=== PATIENT | female | born 1990 | race Caucasian/White ===

== ENCOUNTER 2016-06-28 17:03 | Emergency (ER) | payer BC, OTHER ==
[~2016-06-28 17:03] MED LIST: MOTR200T44 PO; TYLE167L PO
[2016-06-28 18:45] LABS: MEAN CORPUSCULAR HEMOGLOBIN 29.1 pg (27.0-33.0); MEAN CORPUSCULAR HGB CONC 33.8 g/dl (32.0-36.5); MEAN CORPUSCULAR VOLUME 86.1 fl (80.0-96.0); RED CELL DISTRIBUTION WIDTH 12.6 % (11.5-14.5); WHITE BLOOD COUNT 5.5 K/mm3 (4.0-10.0)
--- NOTE | 2016-06-28 19:10 | REPUSA ---
CLINICAL HISTORY: , bleeding TECHNIQUE: Pelvic ultrasound COMPARISON: No study for comparison is available at the time of interpretation. Uterus: Normal without masses. Intrauterine gestation sac: Intrauterine gestation with crown rump length measuring 3.3 mm correlatin g to 6 weeks 0 days gestation. However, no heart activity is seen at this time. Ovaries: There is a 1.6 cm left ovarian corpus luteal cyst. Pelvic fluid: None. IMPRESSION: Intrauterine gestation at 6 weeks 0 days, without discernible heart activity. Follo w-up ultrasound in 3-5 days is recommended to differentiate early live IUP from missed AB.
[2016-06-28 19:21] LABS: ANION GAP 7 MEQ/L (8-16); BLOOD UREA NITROGEN 16 MG/DL (7-18); CALCIUM LEVEL 9.1 MG/DL (8.5-10.1); CARBON DIOXIDE LEVEL 29 MEQ/L (21-32); CHLORIDE LEVEL 104 MEQ/L (98-107); CREATININE FOR GFR 0.65 MG/DL (0.55-1.02); GLOMERULAR FILTRATION RATE > 60.0 (>60); GLUCOSE, FASTING 64 MG/DL (70-105); HCG, SERUM QUANTITATIVE 6028 MIU/ML; POTASSIUM SERUM 3.3 MEQ/L (3.5-5.1); SODIUM LEVEL 140 MEQ/L (136-145)
--- NOTE | 2016-06-28 20:31 | EDDOCDS ---
Physician Documentation [facility] Name: Teresa Hawkins Age: 25 yrs Sex: Female : 1990 Arrival Date: 06/28/2016 Time: 17:03 Bed I1 / M1 Private MD: Tala [facility] [place] Disposition: 06/28/16 20:20 Discharged to Home/Self Care. Impression: Threatened . - Condition is Stable. - Discharge Instructions: Threatened Miscarriage, Pelvic Rest. - Medication Reconciliation, Local Pharmacy Hours form. - Follow up: Krishna Wilkins OB; When: 2 - 3 days; Reason: Recheck today's complaints, Continuance of care. - Problem is new. - Symptoms have improved. - Notes: KRISHNA WILKINS OB WILL CONTACT YOU TOMORROW TO ARRANGE REPEAT BLOOD WORK AND TO SET FOLLOW UP APPOINTMENT. RETURN TO THE ER IF THE SYMPTOMS WORSEN OR BECOME CONCERNING Historical: - Allergies: No known drug Allergies; - Home Meds: 1. Vitamin 27-0.8 mg Oral tab 1 tab once daily - PMHx: none; - PSHx: none; - Social history: Smoking status: Patient states was never smoker of tobacco. No barriers to communication noted, The patient speaks fluent Ethiopian, Speaks appropriately for age. - Family history: No immediate family members are acutely ill. - : The pt / caregiver states he / she is not on anticoagulants. Home medication list is obtained from the patient. - Exposure Risk Screening:: None identified. 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 9 in. (175.26 cm) (R); Pain 0/10; 20:26 BP 109 / 67; Pulse 72; Resp 18; Temp 98.2; Pulse Ox 98% ; ajs 17:05 Body Mass Index 20.67 (63.50 kg, 175.26 cm) gr2 MDM: 17:14 Type & Screen Ordered. EDMS 17:15 CBC Ordered. EDMS 17:48 IV Saline Lock ordered. ck7 17:48 NS 0.9% 1000 ml IV at bolus once ordered. ck7 17:48 Set up pelvic ordered. ck7 17:48 Financial registration complete. gb 17:49 MED Profile Ordered. EDMS 17:49 UA Ordered. EDMS 17:49 GC & Chlamydia Amplification Ordered. EDMS 17:49 Urine Culture Ordered. EDMS 17:49 Wet Prep Ordered. EDMS 17:49 US 1st trimester Ordered. EDMS 17:55 [facility] Payment Agreement was scanned into [email or web address] and attached to record. gb 18:32 TRANSVAGINAL US Ordered. EDMS 18:33 DUPLEX SCAN LIMITED (DOPPLER) Ordered. EDMS 18:36 HCG, SERUM QUANTITATIVE Ordered. EDMS 19:27 MED Profile Reviewed. ck7 19:27 UA Reviewed. ck7 19:27 Type & Screen Reviewed. ck7 19:27 CBC Reviewed. ck7 19:27 HCG, SERUM QUANTITATIVE Reviewed. ck7 19:27 US 1st trimester Reviewed. ck7 20:00 Wet Prep Reviewed. ck7 Administered Medications: 18:07 Drug: NS 0.9% 1000 ml Route: IV; Rate: bolus; Site: right antecubital; jmk 20:30 Follow up: IV Status: Infusion discontinued; IV Intake: 800ml nn1 Signatures: Dispatcher [employer] EDDE Ronda Rebolledo, Reg Reg gb Neha Urban,RN RN ck1 Thad Bustillos RPA-C RPA-Benny7 Ana Paula Camacho,RN RN nn1 Renaldo Fairchild RN The chart was reviewed and I authenticate all verbal orders and agree with the evaluation and treatment provided.Corrections: (The following items were deleted from the chart) 18:36 17:15 HCG, SERUM QUANTITATIVE+LAB ordered. EDMS EDMS Attachments: 17:55 [facility] Payment Agreement gb MTDD
--- NOTE | 2016-06-28 20:31 | EDDOCDS ---
Nurse's Notes [facility] Name: Teresa aHwkins Age: 25 yrs Sex: Female : 1990 Arrival Date: 06/28/2016 Time: 17:03 Bed I1 / M1 Private MD: VIV Edgar Diagnosis: Threatened Presentation: 06/28 17:07 Presenting complaint: Patient states: Moderate bright red bleeding since this morning. ck1 Reports lower abdominal cramping. Patient is 7 weeks . Risk factors: The patient reports no loss of conciousness prior to arrival. This patient has not had a hysterectomy. This patient has not begun menopause. Adult Sepsis Screening: The patient does not have new or worsening altered mentation. Patient's respiratory rate is less than 22. Systolic blood pressure is greater than 100. Patient has a qSOFA score of 0- Negative Sepsis Screen. Suicide/Homicide risk assessment- the patient denies having any suicidal and/or homicidal ideations and does not present with any other emotional, behavioral or mental health complaints. Status: The patient is a dependent. Transition of care: patient was not received from another setting of care. 17:07 Acuity: KIRILL Level 3 ck1 17:07 Method Of Arrival: Walkin/Carried/Asstd ck1 Triage Assessment: 17:09 General: Appears in no apparent distress, comfortable, Behavior is appropriate for age, ck1 cooperative. Pain: Location: pelvis Pain currently is 1 out of 10 on a pain scale. HIV screening NA for this visit Offered previously. Respiratory: Respiratory effort is unlabored, Respiratory pattern is regular, symmetrical. : Reports vaginal bleeding that is bright red with clots moderate flow. Derm: Skin is pink, warm & dry. 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 Vitamin 27-0.8 mg Oral tab 1 tab once daily - PMHx: none; - PSHx: none; - Social history: Smoking status: Patient states was never smoker of tobacco. No barriers to communication noted, The patient speaks fluent Syriac, Speaks appropriately for age. - Family history: No immediate family members are acutely ill. - : The pt / caregiver states he / she is not on anticoagulants. Home medication list is obtained from the patient. - Exposure Risk Screening:: None identified. Screenin:39 Screening information is obtained from the patient. Fall risk: No risks identified. lf1 Assistance ADL's: requires no assistance with activities of daily living. Abuse/DV Screen: The patient / caregiver reports he/she is: not in a situation that causes fear, pain or injury. Nutritional screening: No deficits noted. Advance Directives: Currently, there is no health care proxy. There is no active DNR order. home support is adequate. Assessment: 17:39 Adult Sepsis Screening: The patient does not have new or worsening altered mentation. lf1 Patient's respiratory rate is less than 22. Systolic blood pressure is greater than 100. Patient has a qSOFA score of 0- Negative Sepsis Screen. General: Appears in no apparent distress, comfortable, Behavior is cooperative. Pain: Location: suprapubic area Pain currently is 1 out of 10 on a pain scale. Quality of pain is described as crampy. Neurological: Level of Consciousness is awake, alert. EENT: No deficits noted. Cardiovascular: Chest pain is denied. Respiratory: Respiratory effort is even, unlabored. GI: Denies nausea, vomiting. : Reports vaginal bleeding that is bright red with clots moderate flow. Derm: Skin is normal. 20:29 Adult Sepsis Screening: The patient does not have new or worsening altered mentation. nn1 Patient's respiratory rate is less than 22. Systolic blood pressure is greater than 100. Patient has a qSOFA score of 0- Negative Sepsis Screen. General: Appears in no apparent distress, comfortable, Behavior is appropriate for age, cooperative. Neurological: Level of Consciousness is awake, alert, obeys commands. Respiratory: Airway is patent Respiratory effort is even, unlabored, Respiratory pattern is regular, symmetrical. Derm: Skin is pink, warm & dry. normal. Vital Signs: 17:05 BP 110 / 70; Pulse 68; Resp 18 S; Temp 97.1(O); Pulse Ox 100% on R/A; Weight 63.5 kg gr2 (R); Height 5 ft. 9 in. (175.26 cm) (R); Pain 0/10; 20:26 BP 109 / 67; Pulse 72; Resp 18; Temp 98.2; Pulse Ox 98% ; ajs 17:05 Body Mass Index 20.67 (63.50 kg, 175.26 cm) gr2 Vitals: 17:05 Log In Time: June 28, 2016 at 17:05. gr2 ED Course: 17:04 Patient visited by Tana Palacios. gr2 17:04 Tala [facility] [place] is Private Physician. gr2 17:04 Patient moved to Waiting gr2 17:05 Patient visited by Tana Palacios. gr2 17:05 Patient moved to Pre RCE gr2 17:08 Triage Initiated ck1 17:24 Patient moved to Triage 1 lf1 17:32 Thad Bustillos RPA-C is PHCP. ck7 17:32 Radha Pepper MD is Attending Physician. ck7 17:32 Patient visited by Thad Bustillos RPA-C. ck7 17:51 Patient moved to I1 / M1 lf1 17:54 Patient name changed from Teresa\S\\S\Ross\S\ to Teresa\S\Vandana\S\[place]. EDMS 17:55 [facility] Payment Agreement was scanned into [employer] and attached to record. gb 18:05 Patient visited by Thad Bustillos RPA-C. ck7 18:07 MED Profile Sent. jmk 18:07 CBC Sent. jmk 18:07 Type & Screen Sent. jmk 18:09 Patient visited by Renaldo Fairchild,KSENIA. jmk 18:09 Inserted saline lock: 20 gauge in right antecubital area. jmk 18:11 Patient moved to Ultrasound am17 18:11 Urine Culture Sent. nb2 18:11 UA Sent. nb2 18:23 Patient moved to I1 / M1 am17 18:56 Patient visited by Thad Bustillos RPA-C. ck7 19:21 US 1st trimester Returned. EDMS 19:27 Patient visited by Thad Bustillos RPA-C. ck7 19:58 Patient visited by Thad Bustillos RPA-C. ck7 20:20 JOSE Fuentes is Referral Physician. ck7 20:26 Patient visited by Radha Varner. ajs 20:30 The patient / caregiver is instructed regarding the plan of care and ED course. nn1 20:30 No procedures done that require assistance. nn1 Administered Medications: 18:07 Drug: NS 0.9% 1000 ml Route: IV; Rate: bolus; Site: right antecubital; k 20:30 Follow up: IV Status: Infusion discontinued; IV Intake: 800ml nn1 Intake: 20:29 IV: 800.00ml (NS); Total: 800.00ml. nn1 20:30 IV: 800.00ml; Total: 1600.00ml. nn1 Order Results: Lab Order: Type & Screen; [facility] 06/28/16 18:10 Test: BLOOD TYPE; Value: A POS; Status: F Test: AB SCREEN (INDIRECT RAJANI)VIS; Value: NEGATIVE; Status: F Lab Order: CBC; [facility] 06/28/16 18:10 Test: WHITE BLOOD COUNT; Value: 5.5; Range: 4.0-10.0; Units: K/mm3; Status: F Test: RED BLOOD COUNT; Value: 4.52; Range: 4.00-5.40; Units: M/mm3; Status: F Test: HEMOGLOBIN; Value: 13.2; Range: 12.0-16.0; Units: g/dl; Status: F Test: HEMATOCRIT; Value: 39.0; Range: 36.0-47.0; Units: %; Status: F Test: MEAN CORPUSCULAR VOLUME; Value: 86.1; Range: 80.0-96.0; Units: fl; Status: F Test: MEAN CORPUSCULAR HEMOGLOBIN; Value: 29.1; Range: 27.0-33.0; Units: pg; Status: F Test: MEAN CORPUSCULAR HGB CONC; Value: 33.8; Range: 32.0-36.5; Units: g/dl; Status: F Test: RED CELL DISTRIBUTION WIDTH; Value: 12.6; Range: 11.5-14.5; Units: %; Status: F Test: PLATELET COUNT, AUTOMATED; Value: 168; Range: 150-450; Units: k/mm3; Status: F Lab Order: MED Profile; [facility] 06/28/16 18:10 Test: GLUCOSE, FASTING; Value: 64; Range: 70-105; Abnormal: Below low normal; Units: MG/DL; Status: F Test: BLOOD UREA NITROGEN; Value: 16; Range: 7-18; Units: MG/DL; Status: F Test: CREATININE FOR GFR; Value: 0.65; Range: 0.55-1.02; Units: MG/DL; Status: F Test: GLOMERULAR FILTRATION RATE; Value: > 60.0; Range: >60; Status: F Test: SODIUM LEVEL; Value: 140; Range: 136-145; Units: MEQ/L; Status: F Test: POTASSIUM SERUM; Value: 3.3; Range: 3.5-5.1; Abnormal: Below low normal; Units: MEQ/L; Status: F Test: CHLORIDE LEVEL; Value: 104; Range: 98-107; Units: MEQ/L; Status: F Test: CARBON DIOXIDE LEVEL; Value: 29; Range: 21-32; Units: MEQ/L; Status: F Test: ANION GAP; Value: 7; Range: 8-16; Abnormal: Below low normal; Units: MEQ/L; Status: F Test: CALCIUM LEVEL; Value: 9.1; Range: 8.5-10.1; Units: MG/DL; Status: F Test Note: ; Units are mL/min/1.73 m2 Chronic Kidney Disease Staging per NKF: Stage I & II GFR >=60 Normal to Mildly Decreased Stage III GFR 30-59 Moderately Decreased Stage IV GFR 15-29 Severely Decreased Stage V GFR <15 Very Little GFR Left ESRD GFR <15 on PUNCH PRESS SETTER Lab Order: UA; SPEC'M 06/28/16 18:10 Test: APPEARANCE, URINE; Value: CLEAR; Range: CLEAR; Status: F Test: COLOR, URINE; Value: YELLOW; Range: YELLOW; Status: F Test: PH,URINE; Value: 6.0; Range: 5.0-9.0; Units: UNITS; Status: F Test: SPECIFIC GRAVITY URINE AUTO; Value: 1.021; Range: 1.002-1.035; Status: F Test: PROTEIN, URINE AUTO; Value: NEGATIVE; Range: NEGATIVE; Units: mg/dL; Status: F Test: GLUCOSE, URINE (UA) AUTO; Value: NEGATIVE; Range: NEGATIVE; Units: mg/dL; Status: F Test: KETONE, URINE AUTO; Value: NEGATIVE; Range: NEGATIVE; Units: mg/dL; Status: F Test: UROBILINOGEN, URINE AUTO; Value: 0.2; Range: 0.0-2.0; Units: mg/dL; Status: F Test: BILIRUBIN, URINE AUTO; Value: NEGATIVE; Range: NEGATIVE; Status: F Test: NITRITE, URINE AUTO; Value: NEGATIVE; Range: NEGATIVE; Status: F Test: LEUKOCYTE ESTERASE, URINE AUTO; Value: NEGATIVE; Range: NEGATIVE; Status: F Test: BLOOD, URINE BLOOD; Value: 3+; Range: NEGATIVE; Abnormal: Above high normal; Status: F Test: WBC, URINE AUTO; Value: 2; Range: 0-3; Units: /HPF; Status: F Test: RBC, URINE AUTO; Value: 19; Range: 0-3; Abnormal: Above high normal; Units: /HPF; Status: F Test: BACTERIA, URINE AUTO; Value: NEGATIVE; Range: NEGATIVE; Status: F Test: SQUAMOUS EPITHELIAL CELL UR AU; Value: 1; Range: 0-6; Units: /HPF; Status: F Test: HYALINE CAST, URINE AUTO; Value: 0; Range: 0-1; Units: /LPF; Status: F Lab Order: Wet Prep; SPEC'M 06/28/16 17:57 Test: WET PREP; Value: WET PREP RESULT; Status: F Test: WET PREP; Value: MODERATE EPITHELIAL CELLS PRESENT; Status: F Test: WET PREP; Value: FEW WBC; Status: F Test: WET PREP; Value: MANY RBC; Status: F Test: WET PREP; Value: FEW LONG RODS PRESENT; Status: F Test: WET PREP; Value: FEW SHORT RODS PRESENT; Status: F Test: WET PREP; Value: Comments:; Status: F Test Note: ; Specimen did not meet the 1 hour time limit from collection to examination. Trichomonas vaginalis loses motility quickly therefore, samples need to be examined within 1 hour of collection to optimally identify this organism. Lab Order: HCG, SERUM QUANTITATIVE; SPEC'M 06/28/16 18:10 Test: HCG, SERUM QUANTITATIVE; Value: 6028; Units: MIU/ML; Status: F Test Note: ; GESTATIONAL AGE APPROXIMATE HCG RANGE (MIU/ML) 0.2-1 WEEK 5-50 1-2 WEEKS 50-500 2-3 WEEKS 100-5,000 3-4 WEEKS 500-10,000 4-5 WEEKS 1,000-50,000 5-6 WEEKS 10,000-100,000 6-8 WEEKS 15,000-200,000 2-3 MONTHS 10,000-100,000 NON FEMALES LESS THAN 3.0 Patient samples may contain human heterophilic antibodies that could react with immunoassays to give falsely elevated or depressed results. This assay has been designed to minimize interference from heterophilic antibodies. Elevated hCG levels have also been associated with trophoblastic disease and nontrophoblastic neoplasms. The possibility of having these diseases should be considered before a diagnosis of is made. This test is not intended for use as a surrogate marker for aiding in the diagnosis or monitoring the treatment of cancer patients. [employer] methodology. Radiology Order: US 1st trimester Test: US 1st trimester REASON FOR EXAMINATION: Bleeding; ; CLINICAL HISTORY: , bleeding; ; TECHNIQUE: Pelvic ultrasound; ; COMPARISON: No study for comparison is available at the time of interpretation.; ; Uterus: Normal without masses.; Intrauterine gestation sac: Intrauterine gestation with crown rump length measuring 3.3 mm correlatin; g to 6 weeks 0 days gestation. However, no heart activity is seen at this time.; Ovaries: There is a 1.6 cm left ovarian corpus luteal cyst.; Pelvic fluid: None.; ; IMPRESSION: Intrauterine gestation at 6 weeks 0 days, without discernible heart activity. Follo; w-up ultrasound in 3-5 days is recommended to differentiate early live IUP from missed AB.; ; Outcome: 20:20 Discharge ordered by Provider. ck7 20:29 Discharge Assessment: Patient awake, alert and oriented x 3. No cognitive and/or nn1 functional deficits noted. Patient verbalized understanding of disposition instructions. patient administered narcotics - no. 20:30 The following High Risk Discharge criteria are identified: None. Discharged to home nn1 ambulatory, with family, with significant other. Condition: stable. Discharge instructions given to patient, Instructed on discharge instructions, follow up and referral plans. Demonstrated understanding of instructions, Pt was receptive of discharge instructions/ teaching. Ultrasound Study completed. Property :Personal belongings accompany Pt. 20:31 Patient left the ED. nn1 Signatures: Dispatcher [facility] EDMS Renaldo Fairchild,RN RN Ronda Slaughter, Neha AlexandraRN RN ck1 Anca Zazueta,RN RN lf1 Radha Varner Christopher, RPA-C RPA-Cck7 Tana Palacios gr2 Ella Barcenas am17 Ana Paula Camacho,RN RN nn1 Lori Coronado nb2 Corrections: (The following items were deleted from the chart) 18:36 18:07 HCG, SERUM QUANTITATIVE+LAB sent. dorita EDMS MTDD
--- NOTE | 2016-06-30 21:31 | EDDOCDS ---
Physician Documentation Name: Teresa Hawkins Age: 25 yrs Sex: Female : 1990 Arrival Date: 06/28/2016 Time: 17:03 Bed I1 / M1 Private MD: Tala [facility] [place] Disposition: 06/28/16 20:20 Discharged to Home/Self Care. Impression: Threatened . - Condition is Stable. - Discharge Instructions: Threatened Miscarriage, Pelvic Rest. - Medication Reconciliation, Local Pharmacy Hours form. - Follow up: Krishna Wilkins OB; When: 2 - 3 days; Reason: Recheck today's complaints, Continuance of care. - Problem is new. - Symptoms have improved. - Notes: KRISHNA WILKINS OB WILL CONTACT YOU TOMORROW TO ARRANGE REPEAT BLOOD WORK AND TO SET FOLLOW UP APPOINTMENT. RETURN TO THE ER IF THE SYMPTOMS WORSEN OR BECOME CONCERNING Historical: - Allergies: No known drug Allergies; - Home Meds: 1. Vitamin 27-0.8 mg Oral tab 1 tab once daily - PMHx: none; - PSHx: none; - Social history: Smoking status: Patient states was never smoker of tobacco. No barriers to communication noted, The patient speaks fluent [place], Speaks appropriately for age. - Family history: No immediate family members are acutely ill. - : The pt / caregiver states he / she is not on anticoagulants. Home medication list is obtained from the patient. - Exposure Risk Screening:: None identified. 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 9 in. (175.26 cm) (R); Pain 0/10; 20:26 BP 109 / 67; Pulse 72; Resp 18; Temp 98.2; Pulse Ox 98% ; ajs 17:05 Body Mass Index 20.67 (63.50 kg, 175.26 cm) gr2 MDM: 17:14 Type & Screen Ordered. EDMS 17:15 CBC Ordered. EDMS 17:48 IV Saline Lock ordered. ck7 17:48 NS 0.9% 1000 ml IV at bolus once ordered. ck7 17:48 Set up pelvic ordered. ck7 17:48 Financial registration complete. gb 17:49 MED Profile Ordered. EDMS 17:49 UA Ordered. EDMS 17:49 GC & Chlamydia Amplification Ordered. EDMS 17:49 Urine Culture Ordered. EDMS 17:49 Wet Prep Ordered. EDMS 17:49 US 1st trimester Ordered. EDMS 17:55 [facility] [place] Agreement was scanned into [employer] and attached to record. gb 18:32 TRANSVAGINAL US Ordered. EDMS 18:33 DUPLEX SCAN LIMITED (DOPPLER) Ordered. EDMS 18:36 HCG, SERUM QUANTITATIVE Ordered. EDMS 19:27 MED Profile Reviewed. ck7 19:27 UA Reviewed. ck7 19:27 Type & Screen Reviewed. ck7 19:27 CBC Reviewed. ck7 19:27 HCG, SERUM QUANTITATIVE Reviewed. ck7 19:27 US 1st trimester Reviewed. ck7 20:00 Wet Prep Reviewed. ck7 06/29 18:16 T-Sheet-- Draft Copy was scanned into [employer] and attached to record. klr Administered Medications: 06/28 18:07 Drug: NS 0.9% 1000 ml Route: IV; Rate: bolus; Site: right antecubital; jmk 20:30 Follow up: IV Status: Infusion discontinued; IV Intake: 800ml nn1 Signatures: Dispatcher [employer] EDNY Ronda Rebolledo, Reg Reg gb Neha Urban,RN RN ck1 Thad Bustillos, RPA-C RPA-Cck7 Ana Paula CamachoRN RN nn1 Tricia Castelan Jean RN jmk The chart was reviewed and I authenticate all verbal orders and agree with the evaluation and treatment provided.Corrections: (The following items were deleted from the chart) 18:36 17:15 HCG, SERUM QUANTITATIVE+LAB ordered. EDMS EDMS Attachments: 17:55 [facility] Payment Agreement 06/29 18:16 T-Sheet-- Draft Copy klr Chart Complete MTDD
--- NOTE | 2016-06-30 21:31 | EDDOCDS ---
Physician Documentation [facility] Name: Teresa Hawkins Age: 25 yrs Sex: Female : 1990 Arrival Date: 06/28/2016 Time: 17:03 Bed I1 / M1 Private MD: Tala [facility] Disposition: 06/28/16 20:20 Discharged to Home/Self Care. Impression: Threatened . - Condition is Stable. - Discharge Instructions: Threatened Miscarriage, Pelvic Rest. - Medication Reconciliation, Local Pharmacy Hours form. - Follow up: Krishna Wilkins OB; When: 2 - 3 days; Reason: Recheck today's complaints, Continuance of care. - Problem is new. - Symptoms have improved. - Notes: KRISHNA WILKINS OB WILL CONTACT YOU TOMORROW TO ARRANGE REPEAT BLOOD WORK AND TO SET FOLLOW UP APPOINTMENT. RETURN TO THE ER IF THE SYMPTOMS WORSEN OR BECOME CONCERNING Historical: - Allergies: No known drug Allergies; - Home Meds: 1. Vitamin 27-0.8 mg Oral tab 1 tab once daily - PMHx: none; - PSHx: none; - Social history: Smoking status: Patient states was never smoker of tobacco. No barriers to communication noted, The patient speaks fluent Uzbek, Speaks appropriately for age. - Family history: No immediate family members are acutely ill. - : The pt / caregiver states he / she is not on anticoagulants. Home medication list is obtained from the patient. - Exposure Risk Screening:: None identified. 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 9 in. (175.26 cm) (R); Pain 0/10; 20:26 BP 109 / 67; Pulse 72; Resp 18; Temp 98.2; Pulse Ox 98% ; ajs 17:05 Body Mass Index 20.67 (63.50 kg, 175.26 cm) gr2 MDM: 17:14 Type & Screen Ordered. EDMS 17:15 CBC Ordered. EDMS 17:48 IV Saline Lock ordered. ck7 17:48 NS 0.9% 1000 ml IV at bolus once ordered. ck7 17:48 Set up pelvic ordered. ck7 17:48 Financial registration complete. gb 17:49 MED Profile Ordered. EDMS 17:49 UA Ordered. EDMS 17:49 GC & Chlamydia Amplification Ordered. EDMS 17:49 Urine Culture Ordered. EDMS 17:49 Wet Prep Ordered. EDMS 17:49 US 1st trimester Ordered. EDMS 17:55 [facility] Payment Agreement was scanned into [employer] and attached to record. gb 18:32 TRANSVAGINAL US Ordered. EDMS 18:33 DUPLEX SCAN LIMITED (DOPPLER) Ordered. EDMS 18:36 HCG, SERUM QUANTITATIVE Ordered. EDMS 19:27 MED Profile Reviewed. ck7 19:27 UA Reviewed. ck7 19:27 Type & Screen Reviewed. ck7 19:27 CBC Reviewed. ck7 19:27 HCG, SERUM QUANTITATIVE Reviewed. ck7 19:27 US 1st trimester Reviewed. ck7 20:00 Wet Prep Reviewed. ck7 06/29 18:16 T-Sheet-- Draft Copy was scanned into [employer] and attached to record. klr Administered Medications: 06/28 18:07 Drug: NS 0.9% 1000 ml Route: IV; Rate: bolus; Site: right antecubital; jmk 20:30 Follow up: IV Status: Infusion discontinued; IV Intake: 800ml nn1 Signatures: Dispatcher [employer] EDCT Ronda Rebolledo, Reg Reg gb Neha Urban,RN RN ck1 Thad Bustillos, RPA-C RPA-Cck7 Ana Paula CamachoRN RN nn1 Tricia Castelan Jean RN jmk The chart was reviewed and I authenticate all verbal orders and agree with the evaluation and treatment provided.Corrections: (The following items were deleted from the chart) 18:36 17:15 HCG, SERUM QUANTITATIVE+LAB ordered. EDMS EDMS Attachments: 17:55 [facility] Payment Agreement 06/29 18:16 T-Sheet-- Draft Copy klr Chart Complete MTDD
--- NOTE | 2016-06-30 21:31 | EDDOCDS ---
Nurse's Notes [facility] Name: Teresa Hawkins Age: 25 yrs Sex: Female : 1990 Arrival Date: 06/28/2016 Time: 17:03 Bed I1 / M1 Private MD: VIV Edgar Diagnosis: Threatened Presentation: 06/28 17:07 Presenting complaint: Patient states: Moderate bright red bleeding since this morning. ck1 Reports lower abdominal cramping. Patient is 7 weeks . Risk factors: The patient reports no loss of conciousness prior to arrival. This patient has not had a hysterectomy. This patient has not begun menopause. Adult Sepsis Screening: The patient does not have new or worsening altered mentation. Patient's respiratory rate is less than 22. Systolic blood pressure is greater than 100. Patient has a qSOFA score of 0- Negative Sepsis Screen. Suicide/Homicide risk assessment- the patient denies having any suicidal and/or homicidal ideations and does not present with any other emotional, behavioral or mental health complaints. Status: The patient is a dependent. Transition of care: patient was not received from another setting of care. 17:07 Acuity: KIRILL Level 3 ck1 17:07 Method Of Arrival: Walkin/Carried/Asstd ck1 Triage Assessment: 17:09 General: Appears in no apparent distress, comfortable, Behavior is appropriate for age, ck1 cooperative. Pain: Location: pelvis Pain currently is 1 out of 10 on a pain scale. HIV screening NA for this visit Offered previously. Respiratory: Respiratory effort is unlabored, Respiratory pattern is regular, symmetrical. : Reports vaginal bleeding that is bright red with clots moderate flow. Derm: Skin is pink, warm & dry. 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 Vitamin 27-0.8 mg Oral tab 1 tab once daily - PMHx: none; - PSHx: none; - Social history: Smoking status: Patient states was never smoker of tobacco. No barriers to communication noted, The patient speaks fluent [place], Speaks appropriately for age. - Family history: No immediate family members are acutely ill. - : The pt / caregiver states he / she is not on anticoagulants. Home medication list is obtained from the patient. - Exposure Risk Screening:: None identified. Screenin:39 Screening information is obtained from the patient. Fall risk: No risks identified. lf1 Assistance ADL's: requires no assistance with activities of daily living. Abuse/DV Screen: The patient / caregiver reports he/she is: not in a situation that causes fear, pain or injury. Nutritional screening: No deficits noted. Advance Directives: Currently, there is no health care proxy. There is no active DNR order. home support is adequate. Assessment: 17:39 Adult Sepsis Screening: The patient does not have new or worsening altered mentation. lf1 Patient's respiratory rate is less than 22. Systolic blood pressure is greater than 100. Patient has a qSOFA score of 0- Negative Sepsis Screen. General: Appears in no apparent distress, comfortable, Behavior is cooperative. Pain: Location: suprapubic area Pain currently is 1 out of 10 on a pain scale. Quality of pain is described as crampy. Neurological: Level of Consciousness is awake, alert. EENT: No deficits noted. Cardiovascular: Chest pain is denied. Respiratory: Respiratory effort is even, unlabored. GI: Denies nausea, vomiting. : Reports vaginal bleeding that is bright red with clots moderate flow. Derm: Skin is normal. 20:29 Adult Sepsis Screening: The patient does not have new or worsening altered mentation. nn1 Patient's respiratory rate is less than 22. Systolic blood pressure is greater than 100. Patient has a qSOFA score of 0- Negative Sepsis Screen. General: Appears in no apparent distress, comfortable, Behavior is appropriate for age, cooperative. Neurological: Level of Consciousness is awake, alert, obeys commands. Respiratory: Airway is patent Respiratory effort is even, unlabored, Respiratory pattern is regular, symmetrical. Derm: Skin is pink, warm & dry. normal. Vital Signs: 17:05 BP 110 / 70; Pulse 68; Resp 18 S; Temp 97.1(O); Pulse Ox 100% on R/A; Weight 63.5 kg gr2 (R); Height 5 ft. 9 in. (175.26 cm) (R); Pain 0/10; 20:26 BP 109 / 67; Pulse 72; Resp 18; Temp 98.2; Pulse Ox 98% ; ajs 17:05 Body Mass Index 20.67 (63.50 kg, 175.26 cm) gr2 Vitals: 17:05 Log In Time: June 28, 2016 at 17:05. gr2 ED Course: 17:04 Patient visited by Tana Palacios. gr2 17:04 Tala [facility] is Private Physician. gr2 17:04 Patient moved to Waiting gr2 17:05 Patient visited by Tana Palacios. gr2 17:05 Patient moved to Pre RCE gr2 17:08 Triage Initiated ck1 17:24 Patient moved to Triage 1 lf1 17:32 Thad Bustillos RPA-C is PHCP. ck7 17:32 Radha Pepper MD is Attending Physician. ck7 17:32 Patient visited by Thad Bustillos RPA-C. ck7 17:51 Patient moved to I1 / M1 lf1 17:54 Patient name changed from Teresa\S\\S\Ross\S\ to Teresa\S\Vandana\S\[place]. EDMS 17:55 [facility] Payment Agreement was scanned into [employer] and attached to record. gb 18:05 Patient visited by Thad Bustillos RPA-C. ck7 18:07 MED Profile Sent. jmk 18:07 CBC Sent. jmk 18:07 Type & Screen Sent. jmk 18:09 Patient visited by Renaldo Fairchild,KSENIA. jmk 18:09 Inserted saline lock: 20 gauge in right antecubital area. jmk 18:11 Patient moved to Ultrasound am17 18:11 Urine Culture Sent. nb2 18:11 UA Sent. nb2 18:23 Patient moved to I1 / M1 am17 18:56 Patient visited by Thad Bustillos RPA-C. ck7 19:21 US 1st trimester Returned. EDMS 19:27 Patient visited by Thad Bustillos RPA-C. ck7 19:58 Patient visited by Thad Bustillos RPA-C. ck7 20:20 JOSE Fuentes is Referral Physician. ck7 20:26 Patient visited by Radha Varner. ajs 20:30 The patient / caregiver is instructed regarding the plan of care and ED course. nn1 20:30 No procedures done that require assistance. nn1 06/29 18:16 T-Sheet-- Draft Copy was scanned into [employer] and attached to record. klr Administered Medications: 06/28 18:07 Drug: NS 0.9% 1000 ml Route: IV; Rate: bolus; Site: right antecubital; [facility] 20:30 Follow up: IV Status: Infusion discontinued; IV Intake: 800ml nn1 Intake: 20:29 IV: 800.00ml (NS); Total: 800.00ml. nn1 20:30 IV: 800.00ml; Total: 1600.00ml. nn1 Order Results: Lab Order: Type & Screen; [facility] 06/28/16 18:10 Test: BLOOD TYPE; Value: A POS; Status: F Test: AB SCREEN (INDIRECT RAJANI)VIS; Value: NEGATIVE; Status: F Lab Order: CBC; [facility] 06/28/16 18:10 Test: WHITE BLOOD COUNT; Value: 5.5; Range: 4.0-10.0; Units: K/mm3; Status: F Test: RED BLOOD COUNT; Value: 4.52; Range: 4.00-5.40; Units: M/mm3; Status: F Test: HEMOGLOBIN; Value: 13.2; Range: 12.0-16.0; Units: g/dl; Status: F Test: HEMATOCRIT; Value: 39.0; Range: 36.0-47.0; Units: %; Status: F Test: MEAN CORPUSCULAR VOLUME; Value: 86.1; Range: 80.0-96.0; Units: fl; Status: F Test: MEAN CORPUSCULAR HEMOGLOBIN; Value: 29.1; Range: 27.0-33.0; Units: pg; Status: F Test: MEAN CORPUSCULAR HGB CONC; Value: 33.8; Range: 32.0-36.5; Units: g/dl; Status: F Test: RED CELL DISTRIBUTION WIDTH; Value: 12.6; Range: 11.5-14.5; Units: %; Status: F Test: PLATELET COUNT, AUTOMATED; Value: 168; Range: 150-450; Units: k/mm3; Status: F Lab Order: MED Profile; [facility] 06/28/16 18:10 Test: GLUCOSE, FASTING; Value: 64; Range: 70-105; Abnormal: Below low normal; Units: MG/DL; Status: F Test: BLOOD UREA NITROGEN; Value: 16; Range: 7-18; Units: MG/DL; Status: F Test: CREATININE FOR GFR; Value: 0.65; Range: 0.55-1.02; Units: MG/DL; Status: F Test: GLOMERULAR FILTRATION RATE; Value: > 60.0; Range: >60; Status: F Test: SODIUM LEVEL; Value: 140; Range: 136-145; Units: MEQ/L; Status: F Test: POTASSIUM SERUM; Value: 3.3; Range: 3.5-5.1; Abnormal: Below low normal; Units: MEQ/L; Status: F Test: CHLORIDE LEVEL; Value: 104; Range: 98-107; Units: MEQ/L; Status: F Test: CARBON DIOXIDE LEVEL; Value: 29; Range: 21-32; Units: MEQ/L; Status: F Test: ANION GAP; Value: 7; Range: 8-16; Abnormal: Below low normal; Units: MEQ/L; Status: F Test: CALCIUM LEVEL; Value: 9.1; Range: 8.5-10.1; Units: MG/DL; Status: F Test Note: ; Units are mL/min/1.73 m2 Chronic Kidney Disease Staging per NKF: Stage I & II GFR >=60 Normal to Mildly Decreased Stage III GFR 30-59 Moderately Decreased Stage IV GFR 15-29 Severely Decreased Stage V GFR <15 Very Little GFR Left ESRD GFR <15 on BUFFER MACHINE Lab Order: UA; SPEC'M 06/28/16 18:10 Test: APPEARANCE, URINE; Value: CLEAR; Range: CLEAR; Status: F Test: COLOR, URINE; Value: YELLOW; Range: YELLOW; Status: F Test: PH,URINE; Value: 6.0; Range: 5.0-9.0; Units: UNITS; Status: F Test: SPECIFIC GRAVITY URINE AUTO; Value: 1.021; Range: 1.002-1.035; Status: F Test: PROTEIN, URINE AUTO; Value: NEGATIVE; Range: NEGATIVE; Units: mg/dL; Status: F Test: GLUCOSE, URINE (UA) AUTO; Value: NEGATIVE; Range: NEGATIVE; Units: mg/dL; Status: F Test: KETONE, URINE AUTO; Value: NEGATIVE; Range: NEGATIVE; Units: mg/dL; Status: F Test: UROBILINOGEN, URINE AUTO; Value: 0.2; Range: 0.0-2.0; Units: mg/dL; Status: F Test: BILIRUBIN, URINE AUTO; Value: NEGATIVE; Range: NEGATIVE; Status: F Test: NITRITE, URINE AUTO; Value: NEGATIVE; Range: NEGATIVE; Status: F Test: LEUKOCYTE ESTERASE, URINE AUTO; Value: NEGATIVE; Range: NEGATIVE; Status: F Test: BLOOD, URINE BLOOD; Value: 3+; Range: NEGATIVE; Abnormal: Above high normal; Status: F Test: WBC, URINE AUTO; Value: 2; Range: 0-3; Units: /HPF; Status: F Test: RBC, URINE AUTO; Value: 19; Range: 0-3; Abnormal: Above high normal; Units: /HPF; Status: F Test: BACTERIA, URINE AUTO; Value: NEGATIVE; Range: NEGATIVE; Status: F Test: SQUAMOUS EPITHELIAL CELL UR AU; Value: 1; Range: 0-6; Units: /HPF; Status: F Test: HYALINE CAST, URINE AUTO; Value: 0; Range: 0-1; Units: /LPF; Status: F Lab Order: Urine Culture; SPEC'M 06/28/16 18:10 Test: URINE CULTURE; Value: <EXTERNAL COMMENT eCWMed> FULL REPORT IN LAB NOTES (eCW and [employer]ent).; Status: F Test: URINE CULTURE; Value: URINE CULTURE RESULT NO GROWTH; Status: F Lab Order: GC & Chlamydia Amplification; SPEC'M 06/28/16 17:57 Test: CHLAMYDIA DNA AMPLIFICATION; Value: NEGATIVE; Range: NEGATIVE; Status: F Test: GC DNA AMPLIFICATION; Value: NEGATIVE; Range: NEGATIVE; Status: F Lab Order: Wet Prep; SPEC'M 06/28/16 17:57 Test: WET PREP; Value: WET PREP RESULT; Status: F Test: WET PREP; Value: MODERATE EPITHELIAL CELLS PRESENT; Status: F Test: WET PREP; Value: FEW WBC; Status: F Test: WET PREP; Value: MANY RBC; Status: F Test: WET PREP; Value: FEW LONG RODS PRESENT; Status: F Test: WET PREP; Value: FEW SHORT RODS PRESENT; Status: F Test: WET PREP; Value: Comments:; Status: F Test Note: ; Specimen did not meet the 1 hour time limit from collection to examination. Trichomonas vaginalis loses motility quickly therefore, samples need to be examined within 1 hour of collection to optimally identify this organism. Lab Order: HCG, SERUM QUANTITATIVE; SPEC'M 06/28/16 18:10 Test: HCG, SERUM QUANTITATIVE; Value: 6028; Units: MIU/ML; Status: F Test Note: ; GESTATIONAL AGE APPROXIMATE HCG RANGE (MIU/ML) 0.2-1 WEEK 5-50 1-2 WEEKS 50-500 2-3 WEEKS 100-5,000 3-4 WEEKS 500-10,000 4-5 WEEKS 1,000-50,000 5-6 WEEKS 10,000-100,000 6-8 WEEKS 15,000-200,000 2-3 MONTHS 10,000-100,000 NON FEMALES LESS THAN 3.0 Patient samples may contain human heterophilic antibodies that could react with immunoassays to give falsely elevated or depressed results. This assay has been designed to minimize interference from heterophilic antibodies. Elevated hCG levels have also been associated with trophoblastic disease and nontrophoblastic neoplasms. The possibility of having these diseases should be considered before a diagnosis of is made. This test is not intended for use as a surrogate marker for aiding in the diagnosis or monitoring the treatment of cancer patients. [employer] [place] methodology. Radiology Order: US 1st trimester Test: US 1st trimester REASON FOR EXAMINATION: Bleeding; ; CLINICAL HISTORY: , bleeding; ; TECHNIQUE: Pelvic ultrasound; ; COMPARISON: No study for comparison is available at the time of interpretation.; ; Uterus: Normal without masses.; Intrauterine gestation sac: Intrauterine gestation with crown rump length measuring 3.3 mm correlatin; g to 6 weeks 0 days gestation. However, no heart activity is seen at this time.; Ovaries: There is a 1.6 cm left ovarian corpus luteal cyst.; Pelvic fluid: None.; ; IMPRESSION: Intrauterine gestation at 6 weeks 0 days, without discernible heart activity. Follo; w-up ultrasound in 3-5 days is recommended to differentiate early live IUP from missed AB.; ; Outcome: 20:20 Discharge ordered by Provider. ck7 20:29 Discharge Assessment: Patient awake, alert and oriented x 3. No cognitive and/or nn1 functional deficits noted. Patient verbalized understanding of disposition instructions. patient administered narcotics - no. 20:30 The following High Risk Discharge criteria are identified: None. Discharged to home nn1 ambulatory, with family, with significant other. Condition: stable. Discharge instructions given to patient, Instructed on discharge instructions, follow up and referral plans. Demonstrated understanding of instructions, Pt was receptive of discharge instructions/ teaching. Ultrasound Study completed. Property :Personal belongings accompany Pt. 20:31 Patient left the ED. nn1 Signatures: Dispatcher [employer] EDRenaldo Aggarwal,RN RN Ronda Slaughter, Reg Reg MoneRichar,Neha,RN RN ck1 Anca Zazueta,RN RN lf1 Radha Varner Christopher, RPA-C RPA-Cck7 Tana Palacios gr2 Ella Barcenas am17 Ana Paula Camacho RN RN nn1 Tricia Castelan Nicole nb2 Corrections: (The following items were deleted from the chart) 18:36 18:07 HCG, SERUM QUANTITATIVE+LAB sent. dorita MCCALL Chart Complete MTDD
== END 2016-06-28 20:31 | disposition home or self-care (01) ==
LOC: M ED 17:03
DX: O20.0 Threatened abortion (principal); Z3A.01 Less than 8 weeks gestation of pregnancy